=== PATIENT | male | born 1975 | race Caucasian/White ===

== ENCOUNTER 2018-01-01 19:27 | Emergency (ER) | payer OTHER ==
[~2018-01-01] VITALS: Ht 177.8 cm; Wt 126.4 kg
[2018-01-01 19:57] LABS: HEMATOCRIT 48.6 % (38.0-50.0); HEMOGLOBIN 16.8 G/DL (12.5-16.6); MCH 29.2 PG (29.0-34.0); MCHC 34.6 G/DL (30.0-36.0); MCV 84.4 FL (86-99); PLATELET COUNT 259 K/uL (156-360); RBC DIS.WIDTH-CV 12.2 % (11.8-14.6); RBC DIS.WIDTH-SD 37.1 % (39-53); RED BLOOD COUNT 5.76 M/uL (4.00-5.50); WHITE BLOOD COUNT 11.9 K/uL (4.1-10.2)
[2018-01-01 20:04] LABS: CHLORIDE 100 mEq/L (99-109); POTASSIUM 3.8 mEq/L (3.7-5.4); SODIUM 138 mEq/L (136-147)
[2018-01-01 20:06] LABS: GLUCOSE 107 mg/dL (70-99)
[2018-01-01 20:10] LABS: CREATININE 0.9 mg/dL (0.6-1.3); GFR ESTIMATE (CALCULATED) > 59 mL/min/ (58.99-99999)
[2018-01-01 20:11] LABS: UREA NITROGEN (BUN) 17 mg/dL (9-23)
[2018-01-01 20:18] LABS: TROP-I INTERPRETATION NEGATIVE; TROPONIN-I < 0.01 ng/mL (0.0-0.30)
[2018-01-01 22:44] LABS: TROP-I INTERPRETATION NEGATIVE; TROPONIN-I 0.01 ng/mL (0.0-0.30)
[2018-01-01 23:03] VITALS: BP 125/83
== END 2018-01-01 23:04 | disposition home or self-care (01) ==
LOC: EME 19:27
PROVIDERS: Nurse Practitioner Family
DX: R07.9 Chest pain, unspecified (principal); J45.909 Unspecified asthma, uncomplicated; Z88.0 Allergy status to penicillin
CPT/HCPCS: 71046; 80048; 84484; 85027; 93005; 99281; 99285